=== PATIENT | male | born 1935 | race Hispanic/Latino ===

== ENCOUNTER 2016-10-06 13:18 | Outpatient (CLI) | payer MEDICARE, OTHER ==
--- NOTE | 2016-10-07 14:59 | XRay Report ---
CHEST 2 VIEWS INDICATION: Chest pain at rest. COMPARISON: None similar. FINDINGS: Frontal and lateral chest radiographs demonstrate basilar opacities, more so on the right, representing pleural effusion/atelectasis with obscured right hemidiaphragm. Mild exaggerated cardiomediastinal silhouette. Aortic knob calcifications. No cephalization. Multilevel thoracic spondylosis. CONCLUSION: Right basilar opacity/effusion, as described. Thank you for the opportunity to participate in this patient's care.
== END 2016-10-06 13:19 | disposition home or self-care (01) ==
LOC: XRAY 13:18
PROVIDERS: ATTEND Internal Medicine
DX: J90 Pleural effusion, not elsewhere classified (principal); I70.0 Atherosclerosis of aorta; J98.11 Atelectasis; M47.894 Other spondylosis, thoracic region
CPT/HCPCS: 71020

== ENCOUNTER 2016-10-28 09:48 | Outpatient (CLI) | payer MEDICARE, OTHER ==
--- NOTE | 2016-10-29 08:10 | XRay Report ---
CHEST TWO VIEWS: 10/28/16 09:48:00 CLINICAL: Followup pleural effusion. COMPARISON: 10/06/16 FINDINGS: Complete clearing of the right lung base since the last exam. Mild left lower lobe subsegmental atelectasis. The lungs are otherwise clear. Normal heart and pulmonary vessels. IMPRESSION: Resolution of right pleural effusion.
== END 2016-10-28 09:49 | disposition home or self-care (01) ==
LOC: SPVIMAG 09:48
PROVIDERS: ATTEND Internal Medicine
DX: J90 Pleural effusion, not elsewhere classified (principal); J98.11 Atelectasis
CPT/HCPCS: 71020